=== PATIENT | male | born 1975 | race American Indian/Alaskan Native ===

== ENCOUNTER 2017-07-28 12:27 | Inpatient (IN) | payer SELFPAY ==
[2017-07-28 12:56] VITALS: BMI 34.8
[2017-07-28] MEDS ORDERED: Sodium Chloride 0.9% 1,000 ML IV STA (13:45)
[2017-07-28] MEDS ORDERED: LIDOCAINE IV STA ×2 (13:45→14:15)
[2017-07-28] MEDS ORDERED: SODIUM CHLORIDE 0.9% IV STA ×2 (13:45→14:15)
--- NOTE | 2017-07-28 13:45 | C.PDOC ---
History Of Present Illness 41-year-old male presents to the ED for evaluation of recurrent left-sided flank pain since 0900 today. Patient reports history of prior kidney stones and states current symptoms feel similar to prior. Patient states the pain has started to progress to his left groin region. Patient was referred to the ED by Dr. Griselda Lewis for further evaluation. He also reports nausea and denies fever, chills, hematuria. Time Seen by Provider: 07/28/17 13:13 Chief Complaint (Nursing): Abdominal Pain History Per: Patient History/Exam Limitations: no limitations Onset/Duration Of Symptoms: Hrs Current Symptoms Are (Timing): Still Present Quality Of Discomfort: "Pain" Associated Symptoms: Nausea. denies: Fever, Chills, Urinary Symptoms Additional History Per: Patient Past Medical History Reviewed: Historical Data, Nursing Documentation, Vital Signs Vital Signs: Last Vital Signs Temp 98.4 F 07/28/17 12:56 Pulse 61 07/28/17 14:55 Resp 12 07/28/17 14:55 BP 111/71 07/28/17 14:55 Pulse Ox 97 07/28/17 15:37 - Medical History PMH: Kidney Stones, Chronic Kidney Disease Surgical History: No Surg Hx Family History: States: Unknown Family Hx - Social History Hx Alcohol Use: Yes Hx Substance Use: No - Immunization History Hx Tetanus Toxoid Vaccination: No Hx Influenza Vaccination: No Hx Pneumococcal Vaccination: No Review Of Systems Constitutional: Negative for: Fever, Chills Gastrointestinal: Positive for: Nausea Genitourinary: Negative for: Hematuria Musculoskeletal: Positive for: Other (left flank pain, left groin pain ) Physical Exam - Physical Exam Appears: Non-toxic, Other (in moderate distress ) Skin: Normal Color, Warm, Dry Head: Atraumatic, Normacephalic Eye(s): bilateral: Normal Inspection Oral Mucosa: Moist Chest: Symmetrical, No Deformity, No Tenderness Cardiovascular: Rhythm Regular, No Murmur Respiratory: Normal Breath Sounds, No Rales, No Rhonchi, No Wheezing Gastrointestinal/Abdominal: Soft, No Tenderness, No Guarding, No Rebound Back: CVA Tenderness Extremity: Normal ROM, Capillary Refill Neurological/Psych: Oriented x3, Normal Speech, Normal Cognition Gait: Steady ED Course And Treatment - Laboratory Results Result Diagrams: 07/28/17 14:12 07/28/17 14:12 O2 Sat by Pulse Oximetry: 97 (on RA) Pulse Ox Interpretation: Normal Progress - Re-Evaluation Re-evaluation Note: 07/28/17 15:46 persist pain but improved from prior EXAM 07/28/17 15:51 D/W DR Griselda LEWIS AWARE OF ER FINDINGS WILL ADMIT - Data Reviewed Data Reviewed: Lab, Diagnostic imaging, Old records Disposition Counseled Patient/Family Regarding: Studies Performed, Diagnosis - Disposition Disposition: HOSPITALIZED Disposition Time: 15:53 Condition: STABLE Forms: [facility] ([place]) - POA Present On Arrival: None - Clinical Impression Clinical Impression: Urinary tract obstruction by kidney stone, Acute renal insufficiency - Scribe Statement The provider has reviewed the documentation as recorded by the Scribe (Germaine Desai) Provider Attestation: All medical record entries made by the Scribe were at my direction and personally dictated by me. I have reviewed the chart and agree that the record accurately reflects my personal performance of the history, physical exam, medical decision making, and the department course for this patient. I have also personally directed, reviewed, and agree with the discharge instructions and disposition. Decision To Admit - Pt Status Changed To: Hospital Disposition Of: Inpatient - Admit Certification Admit to Inpatient:: After my assessment, the patient will require hospitalization for at least two midnights. This is because of the severity of symptoms shown, intensity of services needed, and/or the medical risk in this patient being treated as an outpatient. - InPatient: Physician Admission Certification: I certify that this patient requires 2 or more midnights of care for the following reason:: SEE NOTE - . Bed Request Type: Regular Admitting Physician: Bernard Lewis Patient Diagnosis: Urinary tract obstruction by kidney stone, Acute renal insufficiency
[2017-07-28] MEDS ORDERED: Sodium Chloride 0.9% 1,000 ML ONE (14:12)
[2017-07-28 14:16] LABS: BASO # 0.1 K/uL (0.0-0.2); BASO % 0.7 % (0.0-2.0); EOS # 0.6 K/uL (0.0-0.7); HEMOGLOBIN 13.3 g/dL (12.0-18.0); LYMPH # 3.4 K/uL (1.0-4.3); LYMPH % 32.9 % (20.0-40.0); MEAN CELL VOLUME 87.7 fL (80.0-94.0); MEAN CORPUSCULAR HEMOGLOBIN 29.9 pg (27.0-31.0); MEAN CORPUSCULAR HGB CONC 34.1 g/dL (33.0-37.0); MEAN PLATELET VOLUME 9.7 fL (7.2-11.7); MONO # 0.7 K/uL (0.0-0.8); MONO % 6.8 % (0.0-10.0); NEUT # 5.6 K/uL (1.8-7.0); NEUT % 53.6 % (50.0-75.0); RBC 4.43 Mil/uL (4.40-5.90); RED CELL DISTRIBUTION WIDTH 14.2 % (11.5-14.5); WHITE BLOOD COUNT 10.4 K/uL (4.8-10.8)
[2017-07-28 14:28] LABS: ALB/GLOB RATIO 1.2 (1.0-2.1); ALBUMIN 4.4 g/dL (3.5-5.0); CALCIUM 9.1 mg/dl (8.6-10.4)
[2017-07-28 14:48] LABS: URINE BILIRUBIN NEGATIVE (NEGATIVE); URINE BLOOD 3+ (NEGATIVE); URINE CLARITY Clear (Clear); URINE COLOR Yellow (YELLOW); URINE GLUCOSE (UA) NORMAL (Normal); URINE LEUKOCYTE ESTERASE TRACE Leu/uL (Negative); URINE PROTEIN NEGATIVE (NEGATIVE); URINE UROBILINOGEN NORMAL mg/dL (0.2-1.0)
--- NOTE | 2017-07-28 15:12 | RAD ---
HISTORY: Left renal colic COMPARISON: CT abdomen and pelvis performed earlier the same day. FINDINGS: There are punctate calcific densities overlying the renal silhouette. There is a 4 mm calcification in the left hemipelvis corresponding to the distal ureteral stone identified on CT examination. BOWEL: Normal. No obstruction. No free air. BONES: Normal. OTHER FINDINGS: None. IMPRESSION: 1. 4 mm calcification in the left hemipelvis corresponds to the left distal ureteral stone identified on CT examination. 2. Tiny nonobstructing stones in both kidneys.
--- NOTE | 2017-07-28 15:21 | CT ---
PROCEDURE: CT Abdomen and Pelvis without intravenous contrast HISTORY: L RENAL COLIC COMPARISON: None. TECHNIQUE: Without contrast.. Contrast dose: 0 Radiation dose: Total exam DLP = 964.55 mGy-cm. This CT exam was performed using one or more of the following dose reduction techniques: Automated exposure control, adjustment of the mA and/or kV according to patient size, and/or use of iterative reconstruction technique. FINDINGS: LOWER THORAX: Unremarkable. LIVER: Normal size, contour and attenuation. There is a nonspecific low-attenuation lesion in the inferior right hepatic lobe measuring 1.4 cm in diameter. No other mass identified. No biliary dilatation. Smooth contour. GALLBLADDER AND BILE DUCTS: Unremarkable. PANCREAS: Unremarkable. No gross lesion or ductal dilatation. SPLEEN: Mild splenomegaly. The spleen measures 14.5 cm in greatest dimension. No mass. ADRENALS: Unremarkable. No mass. KIDNEYS AND URETERS: Left hydroureteronephrosis. Obstructing 6 mm calculus in the distal left ureter just proximal to the ureterovesical junction. Multiple punctate nonobstructing bilateral renal calculi. No renal mass. There is trace left perinephric fluid and there is left periureteric stranding. VASCULATURE: Unremarkable. No aortic aneurysm. BOWEL: Unremarkable. No obstruction. No gross mural thickening. APPENDIX: Unremarkable. Normal appendix. PERITONEUM: Unremarkable. No free fluid. No free air. LYMPH NODES: Unremarkable. No enlarged lymph nodes. BLADDER: Nondistended REPRODUCTIVE: Normal prostate BONES: Grade 1 spondylolisthesis with bilateral spondylolysis at L5-S1. OTHER FINDINGS: Additional minor findings as above. None. IMPRESSION: Obstructing 6 mm distal left ureteral calculus with left hydroureteronephrosis. Multiple punctate nonobstructing bilateral renal calculi.
[2017-07-28] MEDS ORDERED: Propofol 10 mg/ml Inj (20 ML) ONE ×2 (17:20→18:06)
[2017-07-28] MEDS ORDERED: Succinylcholine Chloride 20 mg/ml Syr (5 ml) IV ONE (17:30)
[2017-07-28] MEDS ORDERED: Ciprofloxacin 400mg/200ml D5W 400 MG/200 ML BAG IVPB ONE (17:32)
[2017-07-28] MEDS ORDERED: Iohexol 240 (50 ml) ONE (17:38)
[2017-07-28] MEDS ORDERED: Lidocaine 2% Jelly (Uro-Jet) ONE (17:38)
[2017-07-28] MEDS ORDERED: Oxycodone/Acetaminophen 5/325 mg Tab PO PRN (18:07)
--- NOTE | 2017-07-28 18:10 | PCM.URO ---
Urology Progress Note - Objective Lab Studies: Reviewed (operating room today) Lab Results Last 24 Hours: Laboratory Results - last 24 hr 07/28/17 07/28/17 07/28/17 14:12 14:12 14:36 WBC 10.4 RBC 4.43 Hgb 13.3 Hct 38.9 MCV 87.7 MCH 29.9 MCHC 34.1 RDW 14.2 Plt Count 191 MPV 9.7 Neut % (Auto) 53.6 Lymph % (Auto) 32.9 [place] % (Auto) 6.8 Eos % (Auto) 6.0 H Baso % (Auto) 0.7 Neut # (Auto) 5.6 Lymph # (Auto) 3.4 [place] # (Auto) 0.7 Eos # (Auto) 0.6 Baso # (Auto) 0.1 Sodium 144 Potassium 4.1 Chloride 108 H Carbon Dioxide 28 Anion Gap 12 BUN 16 Creatinine 1.7 H Est GFR ( Amer) 53 Est GFR (Non-Af Amer) 44 Random Glucose 112 H Calcium 9.1 Total Bilirubin 0.6 AST 32 ALT 27 Alkaline Phosphatase 112 Total Protein 8.1 Albumin 4.4 Globulin 3.7 Albumin/Globulin Ratio 1.2 Lipase 107 Urine Color Yellow Urine Clarity Clear Urine pH 5.0 Ur Specific [place] 1.019 Urine Protein Negative Urine Glucose (UA) Normal Urine Ketones Negative Urine Blood 3+ H Urine Nitrate Negative Urine Bilirubin Negative Urine Urobilinogen Normal Ur Leukocyte Esterase Trace Urine WBC (Auto) 4 Urine RBC (Auto) 13 H Intake & Output: Intake & Output 07/27/17 07/28/17 07/28/17 18:59 06:59 18:59 Intake Total 450 Balance 450 Weight 250 lb Intake: IV 450 Vital Signs: Vital Signs - 24 hr 07/28/17 07/28/17 07/28/17 12:56 14:55 15:54 Temperature 98.4 F Pulse Rate 66 61 Respiratory 21 12 Rate Blood Pressure 142/87 111/71 O2 Sat by Pulse 97 100 97 Oximetry 07/28/17 07/28/17 17:07 17:13 Temperature 98.4 F Pulse Rate 79 60 Respiratory 20 20 Rate Blood Pressure 106/59 L 118/72 O2 Sat by Pulse 100 98 Oximetry
[2017-07-28] MEDS ORDERED: HYDROmorphone 0.5 mg/0.5 ml ISec IVP PRN (18:14)
[2017-07-28] MEDS ORDERED: Lactated Ringer's 1,000 ML IV SCH (18:15)
[2017-07-28 19:18] VITALS: RESP 20; O2SAT 98
[2017-07-28 23:59] VITALS: BP 125/85; PULSE 82; TEMP 98.4
--- NOTE | 2017-07-29 17:58 | RAD ---
PROCEDURE: Intraoperative fluoroscopy HISTORY: LEFT DISTAL URETERAL STONE COMPARISON: Not available TECHNIQUE: Intraoperative fluoroscopy was provided for left ureteral stent placement. Total time of fluoroscopy was 4.2 seconds. FINDINGS: Multiple fluoroscopic spot films are submitted. IMPRESSION: Fluoroscopy provided.
--- NOTE | 2017-08-09 16:25 | HP ---
This is an emergency admission on 07/28/2017. REASON FOR ADMISSION: Severe renal colic and a stone and hydronephrosis. HISTORY OF PRESENT ILLNESS: A very pleasant gentleman who is in the emergency room, called me for further recommendations and plans. He came in with severe renal colic, found to have a stone. We will bring him as an emergency and putting a stent and I discussed the options with the patient. See the plans listed below. PAST MEDICAL AND SURGICAL HISTORY: As listed on the chart. No history of an LA or CVA. SOCIAL HISTORY: Unremarkable. REVIEW OF SYSTEMS: Listed above and noncontributory. PHYSICAL EXAMINATION: GENERAL: Well-nourished male, in no apparent distress. He is currently somewhat uncomfortable with the grimace. VITAL SIGNS: Noted within normal limits. LUNGS: Clear. HEART: Normal S1 and S2. ABDOMEN: Overall soft and nontender. No real CVA tenderness. Normal male phallus without discharge. No testicular mass. RECTAL: Deferred . DIAGNOSES: Urolithiasis, hematuria, hydronephrosis, and severe renal colic. PLAN: As follow, we are going to bring the patient to the OR immediately for a cysto and stent. I explained to the patient that we are just placing him a stent. We are not touching the stone. It is little bit high up and we just want to relieve the pain and pressure. So, the plans are as follows, 1. Antibiotic prophylaxis. 2. Cysto and stent insertion and then further plans will follow. I discussed with the patient the possibility for ureteroscopy and laser lithotripsy. I discussed shock wave lithotripsy. These all to be discussed after we relieve the patient's pain. I explained to the patient risks and benefits and I discussed also doing nothing and observing the patient, did discuss the possibility of the stone passing spontaneously, which of course can occur. I discussed sizing for stones and everything discussed at great length. The plan is as follows, with the patient's consent, we are planning to bring the patient to the OR and place a stent and then further plans will follow. John Lewis MD [facility] # [id number]
--- NOTE | 2017-08-10 08:11 | OP ---
PROCEDURE DATE: 07/28/2017 PREOPERATIVE DIAGNOSES: Severe left renal colic, left hydronephrosis and secondary to ureteral stone. PROCEDURES: Cystoscopy, left retrograde pyelogram, and insertion of a left double-J stent. SURGEON: John Lewis MD BLOOD LOSS: Less than 10 mL. At the termination of the procedure, the patient had a double-J stent in good location. COMPLICATIONS: There were no complications. INDICATIONS: See history and physical for further details. A very pleasant gentleman here for the emergency insertion of a stent. I discussed with the patient's options, observation. I discussed ureteroscopy, laser lithotripsy. I discussed with him shock-wave lithotripsy. I have discussed with him all other options. The patient is here today just for insertion of a stent and to relieve the pain and obstruction to the kidney. Then further plan to follow. See the addendum at the end. Cystoscope was introduced via the urethra. Anterior urethra was normal. No strictures. Urology operative finding normal anterior urethra. No strictures on reviewing. The verumontanum is minimally visually occlusive. There is an obstructing stone with tremendous amount of hydronephrosis and at termination of the procedure, double-J stents in good location. After obtaining informed consent, the patient was placed on the table. Risks and benefits were discussed at length with the patient. The patient is here now for the above-listed procedure. PROCEDURE IN DETAIL: The patient was placed on the table. Consent confirmed. Time-out was called. Antibiotic prophylaxis minimally occlusive. We had identified the ureteral orifice. Retrograde pyelogram was performed. Stone was identified. Massive amount of hydronephrosis . We now placed a wire up to the kidney. It was actually a little obstructed and with the little manipulation with the open-ended, we were able to insert the wire up to the kidney. Once we were able to get past the stone and we got the wire in the kidney, we confirmed that everything the entire procedure was done with the camera and the fluoroscopy. We inserted a double-J stent. Again right at the stone, there is a little difficulty to insert. We were able to get a double-J stent and at termination of the procedure, the double-J stent was in good location, stone looked like in same location. Overall, the patient tolerated the procedure without complication. removed. The aforementioned rectal exam shows a 10-20 gm prostate, soft and smooth. No abnormalities. The patient tolerated the procedure well without complications. PLAN: As follows. 1. Further antibiotics. 2. Then we will make arrangements to treat the stone either with shock-wave lithotripsy or ureteroscopy with laser lithotripsy. John Lewis MD
== END 2017-07-28 23:53 | disposition home or self-care (01) | DRG 694 ==
LOC: C.ER 12:27 → C.9E 15:54 → C.3T 16:16
PROVIDERS: ADMIT Urology; ATTEND Urology
PROC: 0T778DZ Dilation of Left Ureter with Intraluminal Device, Via Natural or Artificial Opening Endoscopic (ICD-10-PCS; 2017-07-28)
PROC: BT1FZZZ Fluoroscopy of Left Kidney, Ureter and Bladder (ICD-10-PCS; principal; 2017-07-28 17:30)
DX: N13.2 Hydronephrosis with renal and ureteral calculous obstruction (principal); N28.9 Disorder of kidney and ureter, unspecified; N18.9 Chronic kidney disease, unspecified; Z87.442 Personal history of urinary calculi

== ENCOUNTER 2018-01-09 12:52 | Day surgery (SDC) | payer MEDICAID ==
[2018-01-09 12:52] VITALS: BMI 34.8
[2018-01-09 14:46] LABS: BASO # 0.1 K/uL (0.0-0.2); BASO % 1.2 % (0.0-2.0); EOS # 0.2 K/uL (0.0-0.7); EOS % 2.8 % (0.0-4.0); HEMOGLOBIN 13.4 g/dL (12.0-18.0); LYMPH # 3.7 K/uL (1.0-4.3); LYMPH % 46.4 % (20.0-40.0); MEAN CELL VOLUME 89.2 fL (80.0-94.0); MEAN CORPUSCULAR HEMOGLOBIN 29.9 pg (27.0-31.0); MEAN CORPUSCULAR HGB CONC 33.5 g/dL (33.0-37.0); MEAN PLATELET VOLUME 9.9 fL (7.2-11.7); MONO # 0.4 K/uL (0.0-0.8); MONO % 4.7 % (0.0-10.0); NEUT # 3.6 K/uL (1.8-7.0); NEUT % 44.9 % (50.0-75.0); NRBC % 0.1 % (0.0-2.0); RBC 4.47 Mil/uL (4.40-5.90); RED CELL DISTRIBUTION WIDTH 14.3 % (11.5-14.5); WHITE BLOOD COUNT 8.1 K/uL (4.8-10.8)
--- NOTE | 2018-01-09 14:48 | C.PDOC ---
History Of Present Illness 42 y/o male presents to ED sent by Dr. Lewis for stent removal in OR. At ED patient c/o right flank pain "not severe" as per patient and denies fever, dysuria, hematuria, nausea, vomiting or any other complaints at this time. Time Seen by Provider: 01/09/18 13:30 Chief Complaint (Nursing): Medical Clearance History Per: Patient History/Exam Limitations: no limitations Onset/Duration Of Symptoms: Days Current Symptoms Are (Timing): Still Present Past Medical History Reviewed: Historical Data, Nursing Documentation, Vital Signs Vital Signs: Last Vital Signs Temp 98.4 F 01/09/18 12:57 Pulse 58 L 01/09/18 12:57 Resp 18 01/09/18 12:57 BP 116/74 01/09/18 12:57 Pulse Ox 98 01/09/18 12:57 - Medical History PMH: Kidney Stones, Chronic Kidney Disease Surgical History: No Surg Hx - [facility] Procedures DILATION OF LEFT URETER WITH INTRALUMINAL DEVICE, ENDO (07/28/17) FLUOROSCOPY OF LEFT KIDNEY, URETER AND BLADDER (07/28/17) Family History: States: No Known Family Hx - Social History Hx Alcohol Use: No Hx Substance Use: No - Immunization History Hx Tetanus Toxoid Vaccination: No Hx Influenza Vaccination: No Hx Pneumococcal Vaccination: No Review Of Systems Constitutional: Negative for: Fever, Chills Gastrointestinal: Positive for: Other (right flank pain). Negative for: Nausea, Vomiting, Diarrhea Genitourinary: Negative for: Dysuria, Hematuria Physical Exam - Physical Exam Appears: Non-toxic, No Acute Distress Skin: Warm, Dry, No Rash Head: Atraumatic, Normacephalic Eye(s): bilateral: Normal Inspection Oral Mucosa: Moist Neck: Supple Cardiovascular: Rhythm Regular Respiratory: Normal Breath Sounds, No Rales, No Rhonchi, No Wheezing Gastrointestinal/Abdominal: Soft, No Tenderness, No Guarding, No Rebound Back: No CVA Tenderness Neurological/Psych: Oriented x3, Normal Speech, Normal Cognition ED Course And Treatment ECG: Interpreted By Me, Viewed By Me ECG Rhythm: Sinus Rhythm O2 Sat by Pulse Oximetry: 98 (RA) Pulse Ox Interpretation: Normal Progress Note: Blood work, UA ordered. Urine culture sent. Disposition - Disposition - Scribe Statement The provider has reviewed the documentation as recorded by the Scribe Maile Griffith All medical record entries made by the Scribe were at my direction and personally dictated by me. I have reviewed the chart and agree that the record accurately reflects my personal performance of the history, physical exam, medical decision making, and the department course for this patient. I have also personally directed, reviewed, and agree with the discharge instructions and disposition.
[2018-01-09 14:54] LABS: INR 1.2; PROTHROMBIN TIME 12.7 SECONDS (9.7-12.2)
[2018-01-09 15:04] LABS: ALB/GLOB RATIO 1.2 (1.0-2.1); ALBUMIN 4.4 g/dL (3.5-5.0); ALT/SGPT 27 U/L (21-72); AST/SGOT 24 U/L (17-59); BLOOD UREA NITROGEN 15 mg/dL (9-20); GFR NON-AFRICAN AMERICAN 60
[2018-01-09] MEDS ORDERED: Lactated Ringer's 1,000 ML IV ONE ×2 (15:27→17:22)
[2018-01-09] MEDS ORDERED: Propofol 10 mg/ml Inj (20 ML) ONE ×2 (16:16→16:18)
[2018-01-09] MEDS ORDERED: Midazolam 2 MG/2 ML VIAL ONE (16:17)
[2018-01-09] MEDS ORDERED: cefTRIAXone 1 gm 1 GM/100 ML BAG IVPB ONE (16:30)
[2018-01-09] MEDS ORDERED: Iohexol 240 (50 ml) ONE (16:31)
[2018-01-09] MEDS ORDERED: Oxycodone/Acetaminophen 5/325 mg Tab PO PRN (17:23)
[2018-01-09] MEDS ORDERED: HYDROmorphone 0.5 mg/0.5 ml ISec IVP PRN (17:24)
[2018-01-09] MEDS ORDERED: Gentamicin 80 mg in 0.9% NS 80 MG/100 ML BAG IVPB SCH (17:30)
[2018-01-09 20:26] VITALS: BP 125/80; PULSE 65; RESP 12; TEMP 97.8; O2SAT 95
--- NOTE | 2018-01-10 15:47 | RAD ---
Date of service: 01/09/2018 HISTORY: LEFT URETERAL STONE COMPARISON: Abdominal x-ray performed 07/28/17, CT abdomen pelvis without contrast performed 07/28/17 FINDINGS: Left ureteral stent. 4 mm calcification evident within the pelvis at the level of the distal left ureter. Moderate constipation. Nonobstructive bowel gas pattern. No acute osseous abnormality is detected. IMPRESSION: Left ureteral stent. 4 mm calcification noted at the level of the distal left ureter.
--- NOTE | 2018-01-10 16:31 | RAD ---
Date of service: 01/09/2018 PROCEDURE: Intraoperative Fluoroscopy. HISTORY: LEFT URETERAL LITHOLITIASIS FINDINGS: Fluoroscopic assistance was provided for cystogram, left retrograde and stent placement. Please refer to the operative report from TABITHA Thomas, , MD [facility]. Total fluoroscopic time (continuous mode) utilized during the procedure 19.8 seconds. Dose report: DLP [id number] (mGy/m2)
--- NOTE | 2018-01-22 07:49 | OP ---
PROCEDURE DATE: 01/09/2018 PREOPERATIVE DIAGNOSES: Urolithiasis hematuria, hydronephrosis, severe left flank pain, and retained stent. POSTOPERATIVE DIAGNOSES: Urolithiasis hematuria, hydronephrosis, severe left flank pain, and retained stent. PROCEDURE: Cystoscopy, removal of left double-J stent, left ureteral dilation, left ureteroscopy, left laser lithotripsy of stone, and insertion of left double-J stent. COMPLICATIONS: There were no complications. SURGEON: John Lewis MD INDICATIONS: See history and physical for further details. He is a very pleasant gentleman. ESTIMATED BLOOD LOSS: Less than 10 mL. At the termination of the procedure, we fragmented the stone and we used stent with dangles . FINDINGS: 1. Normal anterior urethra. 2. No stricture. The verumontanum is minimally occlusive. 2. The stent is very crusted, but we were able to remove it without difficulty and then we found a ureteral stone that we lasered. This corresponds to our original stone. There were no other complications. No other abnormalities. DESCRIPTION OF PROCEDURE: After obtaining informed consent, the patient was placed on table. Routine monitors were placed. Time-out was called to confirm the patient and positioning. I introduced the cystoscope via the urethra. Anterior urethra was normal. No strictures. The verumontanum is minimally visually occlusive. We easily identified the ureteral orifice and we identified the old stent. It was pretty encrusted. We were able to probe the ____ wire up through the stent. We put a wire next. We removed the old double-J stent due to encrustation. In fact, I made them . At this point, we introduced the rigid ureteroscope and we identified the ureteral orifice and adjacent to it. Identified the stone and provided holmium YAG laser energy to the stone. wire up to the kidney. Given all the edema and all the other things ____ put a new stent. In this case, we left the stent with the dangles because ____ removal without having the patient go to any more procedure . The patient tolerated the procedure without complications. Make a note, the patient was held back for the remainder of the procedure, called in emergently to this hospital . John Lewis MD [facility] # [id number]
--- NOTE | 2018-01-22 07:50 | HP ---
HISTORY OF PRESENT ILLNESS: Mr. Posada is a very pleasant gentleman, who is extremely noncompliant, very pleasant about the whole matter back in 08/2017. We had placed a stent available, and I explained to him that we should get him treated for stone as quickly as possible and leaving the stone in for a long time is that putting his kidney at risk and putting him at risk. He wanted to wait until he had insurance, but then even after the insurance, difficulty to get the patient in. Finally today, we were able to get him to come to the emergency room, so we are admitting him as an emergency through the ER, but he is again still noncompliant over the couple of months, and I am worried that his stent is going to be encrusted and not be able to change. So, as long as he is here, we are putting him as an absolute emergency. For treatment of his stones, we are able to plan in for ureteroscopy and laser lithotripsy. Initially, I was planning for shock wave lithotripsy, but he has been too noncompliant, we cannot . I admitted to the emergency room. PAST MEDICAL AND SURGICAL HISTORY: As listed. . REVIEW OF SYSTEMS: As listed above, but was noncontributory. There was pain and discomfort from the stent. Despite the fact that he does not come in through care, it does bother him. PHYSICAL EXAMINATION: GENERAL: A well-nourished male, in no apparent distress. VITAL SIGNS: Within normal limits, included in the chart. LUNGS: Clear. HEART: Normal S1 and S2. ABDOMEN: Soft. Nontender. No flank mass appreciated. GENITOURINARY: Normal male phallus without discharge. No testicular masses are noted. LABORATORY DATA: See chart. DIAGNOSTIC DATA: X-rays, see chart. DIAGNOSES: Urolithiasis, hematuria, hydronephrosis, and at this point, basically retained stent. PLAN: As follows. This is a very pleasant , he has just been noncompliant, and at this point, I am very concerned with the patient not getting stent encrusted so I bring him to the emergency. The plan is as follows, we are going to bring him to the OR, and we will plan a urethroscopy and a laser lithotripsy, and most likely, the stent will remain in place. not reliable to come back to get it out. Further plans as follows. I explained to the patient in great detail. Risks, benefits, and treatment alternatives were discussed. We will plan to proceed. ADDENDUM: See the operative report. We found basically an encrusted stent. We were able to laser the stone. Further plans will follow. John Lewis MD
== END 2018-01-09 21:35 | disposition home or self-care (01) ==
LOC: C.ER 12:52 → C.SDS 15:12
PROVIDERS: ATTEND Urology
DX: T83.89XA Other specified complication of genitourinary prosthetic devices, implants and grafts, initial encounter (principal); N13.2 Hydronephrosis with renal and ureteral calculous obstruction; Y73.8 Miscellaneous gastroenterology and urology devices associated with adverse incidents, not elsewhere classified; Z18.89 Other specified retained foreign body fragments; Z91.19 Patient's noncompliance with other medical treatment and regimen; R31.9 Hematuria, unspecified
CPT/HCPCS: 52356; 74018; 80053; 82365; 85025; 85610; 85730; 99283; C1758; C1769; C2617; J0696; J1170; J1580; J2704; J7120